=== PATIENT | female | born 1935 | race Caucasian/White ===

== ENCOUNTER 2017-01-07 10:25 | Emergency (ER) | payer MEDICARE, OTHER ==
[~2017-01-07] VITALS: Wt 50.0 kg
[2017-01-07] MEDS ORDERED: morphine 2 MG INJ IV STA (11:52)
[2017-01-07] MEDS ORDERED: ONDANSETRON 4 MG INJ IV STA (11:52)
[2017-01-07] MEDS ORDERED: SOD CHLORIDE 0.9% 1,000 ML IV STA (11:52)
[2017-01-07 12:53] LABS: ADD SCAN DIFF NO
[2017-01-07 12:55] LABS: BASOPHILS % 0.4 % (0.0-2.0); EOSINOPHILS # 0.1 10^3/ul (0.0-0.5); EOSINOPHILS % 1.4 % (0.0-7.0); HEMATOCRIT 37.9 % (37.0-47.0); HEMOGLOBIN 12.8 g/dl (12.0-16.0); LYMPHOCYTES # 1.3 10^3/ul (0.8-2.9); LYMPHOCYTES % 25.6 % (15.0-51.0); MEAN CORPUSCULAR HEMOGLOBIN 32.6 pg (29.0-33.0); MEAN CORPUSCULAR HGB CONC 33.8 g/dl (32.0-37.0); MEAN CORPUSCULAR VOLUME 96.4 fl (82.0-101.0); MEAN PLATELET VOLUME 10.1 fl (7.4-10.4); MONOCYTE # 0.4 10^3/ul (0.3-0.9); MONOCYTES % 8.5 % (0.0-11.0); NEUTROPHIL # 3.3 10^3/ul (1.6-7.5); NEUTROPHILS % 63.9 % (39.0-77.0); PLATELET COUNT 223 10^3/UL (140-415); RED BLOOD COUNT 3.93 10^6/ul (4.20-5.40); RED CELL DISTRIBUTION WIDTH 12.9 % (11.5-14.5); WHITE BLOOD COUNT 5.2 10^3/ul (4.8-10.8)
[2017-01-07 13:26] LABS: POTASSIUM 4.3 mmol/L (3.5-5.1)
[2017-01-07 13:28] LABS: ALBUMIN/GLOBULIN RATIO 1.02; BILIRUBIN,INDIRECT 0.4 mg/dl (0-1.1); BILIRUBIN,TOTAL 0.4 mg/dl (0.2-1.3); CREATININE 1.05 mg/dl (0.44-1.00); TOTAL PROTEIN 7.9 g/dl (6.1-8.1)
[2017-01-07 13:29] LABS: CALCIUM 9.2 mg/dl (8.4-10.2)
--- NOTE | 2017-01-07 13:41 | RADRPT ---
PROCEDURE: CT Abdomen and Pelvis without contrast. CLINICAL INDICATION: Abdominal pain. Nausea, constipation TECHNIQUE: CT scan of the abdomen and pelvis without contrast was performed on a multidetector hig h-resolution CT scanner. Coronal and sagittal reformatted images were obtained from the axial [facility] e images. Images were reviewed on a high-resolution PACS workstation. The total exam CTDI equals 5.2 mGy and the total exam DLP equals 257 mGy-cm. COMPARISON: None. FINDINGS: CT abdomen: The lung bases are clear. The heart size is normal. No pericardial effusion identified. Aortic valve calcification is noted. The liver demonstrates normal size and density. No liver mass identified. The gallbladder is surgically absent.. There is no intrahepatic or extrahepatic biliary dilatation. The spleen is normal in size. No focal splenic abnormality identified. No gross abnormality of the stomach is identified. The pancreas is unremarkable. The adrenal glands appear normal. The kidneys are unremarkable. There is no evidence of renal mass, renal calculi or hydronephrosis. The aorta is of normal caliber. Aortic vascular calcifications are present. No adenopathy identified. The bowel and mesentery are unremarkable. CT pelvis: The pelvic organs are normal. The pelvic sidewalls and inguinal regions are clear. The sigmoid colon and rectum are unremarkable. No adenopathy, free fluid or inflammatory change identified. The osseous structures are unremarkable. No osteolytic or osteoblastic lesion is detected. IMPRESSION: 1. Moderate atherosclerotic peripheral vascular disease. 2. Aortic valve calcifications is noted. 3. Previous cholecystectomy. 4. No mass, lymphadenopathy, or focal acute inflammatory process is identified. RPTAT: QQ .Jacobo Mack MD, Date Time Electronically viewed and signed by .Jacobo Mack MD, MD on 01/07/2017 13:40 .M/
[2017-01-07] MEDS ORDERED: MAGN296S40 PO (13:55)
[2017-01-07] MEDS ORDERED: POLY17PO6 PO (13:55)
[2017-01-07] MEDS ORDERED: NAPR-688 PO (13:56)
[2017-01-07] MEDS ORDERED: ONDA4TAB14 PO (13:56)
[2017-01-07] MEDS ORDERED: LOSA50TA6 PO (13:57)
[2017-01-07] MEDS ORDERED: LEVO75TA5 PO (13:58)
--- NOTE | 2017-01-07 14:05 | ERD ---
ER Documentation Chief Complaint Date/Time DATE: 01/07/17 TIME: 14:02 Chief Complaint LEFT LOWER QUADRANT HERNIA FOR 1 YEAR GETTING WORSE ABD PAIN NO DYSURIA HPI This 81-year-old female presented emergency room with left lower sided abdominal pain as well as mid abdominal pain on and off for a year. Pain is described as a fullness ache. She was told by a doctor in [place] that she had a hernia. She has had evaluations in the [place] where she has had CAT scans with a told that she did not have a hernia. She occasionally feels like she does not want to eat because she has nausea and feels fullness in her abdomen. She has no fevers or chills. ROS All systems reviewed and are negative except as per history of present illness. Medications Home Meds Active Scripts Ondansetron (Ondansetron Odt) 4 Mg Tab.rapdis, 4 MG PO Q6H Y for NAUSEA AND/OR VOMITING, #10 TAB Prov:MARY ELLENDARLINE 01/07/17 Naproxen* (Naproxen*) 500 Mg Tablet, 375 MG PO BID Y for PAIN, #10 TAB Prov:MARY ELLENDARLINE DO 01/07/17 Magnesium Citrate* (Magnesium Citrate*) 296 Ml Solution, 296 ML PO ONCE, #1 BOTTLE Prov:MARY ELLENDARLINE 01/07/17 Polyethylene Glycol* (Miralax*) 17 Gm Powd.pack, 17 GM PO DAILY, #12 Prov:DARLINE HYDE 01/07/17 Reported Medications Levothyroxine Sodium* (Levothyroxine Sodium*) Unknown Strength Tablet, PO BEFORE BREAKFAST, #30 TAB 01/07/17 Losartan Potassium* (Losartan Potassium*) Unknown Strength Tablet, PO DAILY, TAB 01/07/17 Allergies Allergies: Coded Allergies: Penicillins (Verified Allergy, Intermediate, 01/07/17) Physical Exam Vitals Vital Signs Date Time Temp Pulse Resp B/P Pulse Ox O2 Delivery O2 Flow Rate FiO2 01/07/17 10:30 98.0 80 20 169/100 99 Physical Exam Const: [] No distress Head: Atraumatic Eyes: Normal Conjunctiva ENT: Normal External Ears, Nose and Mouth. Neck: Full range of motion..~ No meningismus. Resp: Clear to auscultation bilaterally Cardio: Regular rate and rhythm, no murmurs Abd: Soft, very mild left-sided and mid abdominal pain without guarding or rebound no masses palpable, non distended. Normal bowel sounds Skin: No petechiae or rashes Back: No midline or flank tenderness Ext: No cyanosis, or edema Neur: Awake and alert and oriented 3, no focal deficits Psych: Normal Mood and Affect Result Diagram: 01/07/17 1240 01/07/17 1240 Results 24 hrs Laboratory Tests Test 01/07/17 12:40 White Blood Count 5.210^3/ul Red Blood Count 3.9310^6/ul Hemoglobin 12.8g/dl Hematocrit 37.9% Mean Corpuscular Volume 96.4fl Mean Corpuscular Hemoglobin 32.6pg Mean Corpuscular Hemoglobin Concent 33.8g/dl Red Cell Distribution Width 12.9% Platelet Count 14838^3/UL Mean Platelet Volume 10.1fl Neutrophils % 63.9% Lymphocytes % 25.6% Monocytes % 8.5% Eosinophils % 1.4% Basophils % 0.4% Nucleated Red Blood Cells % 0.0/100WBC Neutrophils # 3.310^3/ul Lymphocytes # 1.310^3/ul Monocytes # 0.410^3/ul Eosinophils # 0.110^3/ul Basophils # 0.010^3/ul Nucleated Red Blood Cells # 0.010^3/ul Sodium Level 140mmol/L Potassium Level 4.3mmol/L Chloride Level 109mmol/L Carbon Dioxide Level 28mmol/L Anion Gap 7 Blood Urea Nitrogen 22mg/dl Creatinine 1.05mg/dl Glucose Level 80mg/dl Calcium Level 9.2mg/dl Total Bilirubin 0.4mg/dl Direct Bilirubin 0.00mg/dl Indirect Bilirubin 0.4mg/dl Aspartate Amino Transf (AST/SGOT) 38IU/L Alanine Aminotransferase (ALT/SGPT) 37IU/L Alkaline Phosphatase 79IU/L Total Protein 7.9g/dl Albumin 4.0g/dl Globulin 3.90g/dl Albumin/Globulin Ratio 1.02 Lipase 201U/L Current Medications Medications (Trade) Dose Ordered Sig/Eber Route PRN Reason Start Time Stop Time Status Last Admin Dose Admin Sodium Chloride (NS) 1,000 ml @ 1,000 mls/hr Q1H STAT IV 01/07/17 11:52 5/27/17 12:51 DC 01/07/17 12:44 Morphine Sulfate (morphine) 2 mg ONCE STAT IV 01/07/17 11:52 01/07/17 11:54 DC 01/07/17 12:45 Ondansetron HCl (Zofran Inj) 4 mg ONCE STAT IV 01/07/17 11:52 01/07/17 11:54 DC 01/07/17 12:44 Procedures/MDM Constipation and elderly female likely causing her abdominal pain. No signs of infection. Patient's granddaughter that accompanied her believe that she may just be constipated but because the patient was very anxious she brought her in for an evaluation. She received a liter of normal saline as well as 2 mg of morphine 4 mg of Zofran. Her pain is improved and she has no nausea and is able to take p.o. currently. She has evidence of very mild renal insufficiency. Printed a CAT scan to give to her primary care doctor and we did discharge her with MiraLAX, magnesium citrate, a few naproxen tabs for pain as well as Zofran case she sprints is nausea so that she can hydrate. Explained importance of hydration during taking laxatives. Primary care follow- up in 2-3 days and return precautions. CT abdomen pelvis interpretation: I see no acute process, moderate retained stool throughout transverse and descending and sigmoid colon, no obstruction, no free air, no abnormal fat stranding, no fractures. Departure Diagnosis: Primary Impression: Abdominal pain Additional Impression: Constipation Condition: Stable Patient Instructions: Abdominal Pain, Unknown Cause, (Female), Constipation ( Adult) Additional Instructions: Call your primary care doctor TOMORROW for an appointment during the next 2-3 days.See the doctor sooner or return here if your condition worsens before your appointment time. DARLINE HYDE DO January 07, 2017 14:05
== END 2017-01-07 14:14 | disposition home or self-care (01) ==
LOC: E/R 10:25
DX: R10.32 Left lower quadrant pain (principal); R11.0 Nausea; K59.00 Constipation, unspecified
CPT/HCPCS: 74176; 80053; 83690; 84484; 85025; J2270; J2405; J7030; 96374; 96375